=== PATIENT | female | born 1990 | race Caucasian/White ===

== ENCOUNTER 2017-11-04 22:10 | Inpatient (IN) | END 2017-11-06 19:15 | disposition home or self-care (01) | DRG 782 ==

== ENCOUNTER 2017-12-04 14:20 | Outpatient (CLI) | END 2017-12-04 16:32 | disposition home or self-care (01) ==

== ENCOUNTER 2018-01-12 16:19 | Outpatient (CLI) | END 2018-01-12 19:53 | disposition home or self-care (01) ==

== ENCOUNTER 2018-01-29 11:45 | Outpatient (CLI) | END 2018-01-29 16:35 | disposition home or self-care (01) ==

== ENCOUNTER 2018-01-30 17:25 | Outpatient (CLI) | END 2018-01-30 19:15 | disposition home or self-care (01) ==

== ENCOUNTER 2018-02-08 21:08 | Inpatient (IN) | END 2018-02-10 15:07 | disposition home or self-care (01) | DRG 780 ==

== ENCOUNTER 2018-02-17 14:15 | Inpatient (IN) | END 2018-02-19 14:35 | disposition home or self-care (01) | DRG 775 ==